=== PATIENT | female | born 1950 | race Caucasian/White ===

== ENCOUNTER → 2017-03-10 | Day surgery (SDC) | payer OTHER ==
[~2017-03-10] VITALS: Ht 162.6 cm; Wt 73.2 kg
[2017-03-10 08:48] LABS: HCT 44.2 % (37.0-47.0); HGB 15.1 g/dl (12.5-16.0); MCH 30.4 pg (25.0-31.0); MCHC 34.2 g/dL (32.0-36.0); MCV 89.1 fL (78.0-100.0); MPV 10.5 fL (6.0-9.5); RBC 4.96 M/uL (4.20-5.40); RDW 12.9 % (11.5-14.0); WBC 5.3 K/uL (4.0-10.5)
[2017-03-10 09:12] LABS: ALBUMIN 4.7 g/dL (3.4-4.8); BILIRUBIN - TOTAL 0.6 mg/dL (0.1-1.0); CREATININE 0.5 mg/dL (0.5-1.0); GLOBULIN (CALCULATION) 2.4 g/dL (2.2-4.2); TOTAL PROTEIN 7.1 g/dL (6.4-8.3)
== END | disposition home or self-care (01) ==
LOC: FAS 08:29
PROVIDERS: Surgery
DX: Z12.11 Encounter for screening for malignant neoplasm of colon (principal); K63.5 Polyp of colon; K57.30 Diverticulosis of large intestine without perforation or abscess without bleeding; K21.9 Gastro-esophageal reflux disease without esophagitis; I10 Essential (primary) hypertension; J30.9 Allergic rhinitis, unspecified; M81.0 Age-related osteoporosis without current pathological fracture; Z98.82 Breast implant status; Z81.1 Family history of alcohol abuse and dependence; Z82.3 Family history of stroke; Z79.899 Other long term (current) drug therapy
CPT/HCPCS: 36415; 80053; 88312; J2704